=== PATIENT | female | born 1985 ===

== ENCOUNTER 2024-12-15 10:38 | Emergency (ER) | payer BC, SELFPAY ==
--- NOTE | ~2024-12-15 | XR_ITS ---
EXAMINATION: XR CHEST CLINICAL INFORMATION: cough, SOB COMPARISON: None available. TECHNIQUE: 2 views of the chest were obtained. FINDINGS: Numerous leads overlie the thorax. The cardiac, hilar, and mediastinal contours are normal. The lungs are clear bilaterally. There is no pneumothorax or pleural effusion. There is no focal osseous or soft tissue abnormality. XR/XR chest 2V IMPRESSION: No active disease. Normal chest. Electronically signed by: Wenceslao Braga MD 12/15/2024 12:23 PM [facility]
[2024-12-15 10:48] VITALS: BP 132/82; PULSE 101; RESP 26; TEMP 36.7; O2SAT 93; BMI 26.4
--- NOTE | 2024-12-15 11:01 | ED.SOB ---
HPI - SOB/Dyspnea General Chief Complaint: Dyspnea Stated Complaint: SOB - asthma Time Seen by Provider: 12/15/24 10:55 Source: patient Mode of arrival: ambulatory History of Present Illness ED Provider: Shanell MENDOZA Narrative: 39-year-old female with history of asthma, comes in with 3 days worsening shortness of breath that is been sick for a couple of weeks, she has been previously admitted for her asthma but has not been intubated. Related Data Previous Rx's ?Medication ?Instructions ?Recorded prednisone 50 mg tablet 50 mg PO DAILY 4 days #4 tabs 12/15/24 Allergies Allergy/AdvReac Type Severity Reaction Status Date / Time codeine Allergy Shortness Verified 12/15/24 10:51 of Breath Review of Systems Review of Systems: Pertinent positives and negatives as stated in [facility] Past Medical History Source: nursing notes reviewed Social History Social History Smoked in Last 30 Days: No Use of substances other than those prescribed or required for medical reasons: No Advance Directives: No Advance Directives Information Provided: No Do you have a plan to hurt others: No Plan Patient : No Physical Exam Vital Signs: Vital Signs: Last Vital Signs Temp 97.6 F 12/15/24 13:20 Pulse 108 H 12/15/24 13:20 Resp 22 H 12/15/24 13:20 BP 115/70 12/15/24 13:20 Pulse Ox 94 12/15/24 13:20 O2 Del Method Room Air 12/15/24 13:20 BMI result Body Mass Index 26.4 VITAL SIGNS: Reviewed. GENERAL: Well developed, well nourished, in no acute distress. HEAD: Normocephalic/atraumatic EYES: PERRLA, EOMI EARS: Ext canals without abnormality NOSE: Nares patent bilateral OROPHARYNX: no oral lesions noted, posterior pharynx clear and non-erythematous without noted tonsillar enlargement/erythema/exudates NECK: Supple, no adenopathy LUNGS: Increased work of breathing, audible wheezing, tachypnea, unable to speak in full sentences, retractions SpO2<93> CARDIOVASCULAR: Regular rate and rhythm without noted murmurs ABDOMEN: Soft, non-tender, non-distended with bowel sounds. MUSCULOSKELETAL: No tenderness, deformities, or effusions noted on gross inspection. EXTREMITIES: No cyanosis, clubbing or edema. SKIN: Inspection of the skin reveals no rashes NEUROLOGIC: Alert and oriented x 4. Strength and sensation to light touch were grossly intact x 4. Medications Administered Discontinued Medications Generic Name Dose Route Start Last Admin Trade Name Krystyna PRN Reason Stop Dose Admin Albuterol Sulfate 5 mg/ 7.5 mg 12/15/24 11:03 12/15/24 11:07 Albuterol Sulfate 2.5 mg INHALE 12/15/24 11:04 7.5 mg ONCE ONE Administration Albuterol Sulfate 2.5 mg/ 5 mg 12/15/24 12:20 12/15/24 12:24 Albuterol Sulfate 2.5 mg INHALE 12/15/24 12:21 5 mg ONCE ONE Administration Magnesium Sulfate 2 gm in 50 mls @ 150 mls/hr 12/15/24 10:58 12/15/24 12:47 Magnesium Sulfate/H2o IV 12/15/24 11:17 Infused ONCE ONE Infusion Methylprednisolone Sodium Succinate 125 mg 12/15/24 10:58 12/15/24 11:12 Methylprednisolone Sod Succ 125 Mg/2 Ml Vial IVPUSH 12/15/24 10:59 125 mg ONCE ONE Administration Medical Decision Making Medical Decision Making MDM Narrative: 1102: Magnesium sulfate, ED bronch protocol, [facility], 39-year-old female with history and clinical presentation, DD DX: Viral illness, acute asthma exacerbation, will rule out pneumonia. 1218: I reviewed and interpreted all investigations and there is no infectious leukocytosis/anemia/thrombocytopenia. Coagulation studies are within normal limits. There is no demonstrate LISA/electrolyte or liver enzyme derangements. Viral testing is negative for COVID-19/influenza/RSV. Rapid strep testing is negative for pharyngitis. Chest x-ray on my interpretation is negative for infiltrate or venous congestion otherwise my interpretation is in agreement with radiology's impression. Patient does appear more comfortable though there are still significant wheezing throughout and will ask RT to administer another treatment. 1337: Re-evaluation patient has had 2 nebulized treatments in total, she looks much more comfortable and states that she is feeling better, all results and findings discussed with her at bedside and she understands that she will discharged with an inhaler/spacer as well as a short course of steroids. Differential Diagnosis Differential Diagnoses: The differential diagnosis associated with the presentation includes See above Admission/Observation Consideration of admission/observation: Escalation of care including admission/observation considered Lab Data MDM Lab Attestation statement: I reviewed the patient's lab results. See above 12/15/24 11:06 12/15/24 11:39 Labs: Lab Results 12/15/24 12/15/24 12/15/24 Range/Units 11:06 11:17 11:39 WBC 8.9 (4.8-10.8) X10*3/uL RBC 4.71 (4.20-5.50) X10*6/uL Hgb 15.3 (12.0-16.0) g/dl Hct 43.2 (37.0-47.0) % MCV 91.7 (80.0-98.0) fL MCH 32.5 (27.0-33.0) pg MCHC 35.4 H (31.0-35.0) g/dl RDW 11.9 (11.0-16.0) % Plt Count 329 (160-400) X10*3/uL MPV 8.8 L (9.4-12.3) fL Immature Gran % (Auto) 0.2 (0.0-0.4) % Neut % (Auto) 70.1 (45-73) % Lymph % (Auto) 15.2 L (20-40) % [place] % (Auto) 8.2 (2-11) % Eos % (Auto) 5.3 H (0-4) % Baso % (Auto) 1.0 (0-2) % Lymph # (Auto) 1.4 (1.2-4.9) X10*3/uL [place] # (Auto) 0.7 (0.1-1.2) X10*3/uL Eos # (Auto) 0.5 H (0.0-0.4) X10*3/uL Baso # (Auto) 0.1 (0.0-0.2) X10*3/uL Abs Immat Gran (auto) 0.02 (0.00-0.03) X10*3/uL Absolute Neuts (auto) 6.2 (2.0-8.3) x10*3/uL Absolute Nucleated RBC 0.000 (0.0-0.012) X10*3/uL Nucleated RBC % (auto) 0.0 (0.0-0.2) /100WBC PT 12.4 (10.9-12.4) SEC INR 1.1 (0.9-1.1) Sodium 140 (135-145) mmol/L Potassium 3.5 (3.3-5.1) mmol/L Chloride 109 H (96-108) mmol/L Carbon Dioxide 26 (22-29) mmol/L Anion Gap 9 L (12-20) BUN 6 L (9-16) mg/dL Creatinine 0.60 (0.5-1.4) mg/dL Estim Creat Clear Calc 112.9 Estimated GFR > 60 Random Glucose 123 H (60-115) mg/dL Calcium 8.7 (8.4-10.2) mg/dL Magnesium 3.1 H (1.6-2.6) mg/dL Total Bilirubin 0.4 (0.0-1.0) mg/dL AST 22 (5-31) U/L ALT 16 (0-31) U/L Alkaline Phosphatase 71 (39-117) U/L Total Protein 8.0 (6.5-8.0) g/dL Albumin 4.1 (3.5-5.0) g/dL Beta HCG, Quant < 2 mIU/mL Influenza Type A (PCR) NEGATIVE (Negative) Influenza Type B (PCR) NEGATIVE (Negative) RSV RNA Qual (PCR) NEGATIVE (Negative) SARS-CoV-2 RNA (RT-PCR) NEGATIVE (Negative) S. pyogenes GrpA ELDON Negative (Negative) Independent Interpretation I performed an independent interpretation of an: Plain X-Ray Radiology Impression Discussion of test interpretation with radiology: I have reviewed the radiologist's reading. Radiologist Impression: See above External Record Review External record reviewed: Prior outpatient labs and Prior outpatient radiology Chronic Conditions Patient?s care impacted by: Other Asthma Critical Care Time Critical Care Time Critical Care Time: Yes Total Critical Care Time: 30 Attestation: I personally attest to this time spent taking care of the patient. Discharge Plan Discharge Clinical Impression: Asthma with exacerbation Patient Disposition: Home, Self-Care Instructions: Asthma (ED) Additional Instructions: Over the next 24-48 hours you will need to continue with every 4/6 hourly nebulized/inhaler treatments you have been discharged with a script for prednisone. Follow-up with your primary care doctor within the next 3-4 days and return to the emergency room immediately should you experience any acute worsening of your symptoms. Prescriptions: New prednisone 50 mg tablet 50 mg PO DAILY 4 Days Qty: 4 0RF Print Language: Spanish
[2024-12-15 11:04] VITALS: PULSE 85; RESP 24; O2SAT 96
[2024-12-15] MEDS: Albuterol Sulfate 5 MG, Albuterol Sulfate (0.083%) 2.5 MG 7.5 MG INHALE (11:07)
[2024-12-15 11:12] LABS: MANUAL DIFF FLAG NO
[2024-12-15] MEDS: methylPREDNISolone Sod Succ 125 MG/2 ML VIAL IVPUSH (11:12)
[2024-12-15] MEDS: Magnesium Sulfate/H2O 2 GM/50 ML PIGGYBACK IV (11:12)
[2024-12-15 11:14] LABS: Basophils Absolute Auto 0.1 X10*3/uL (0.0-0.2); Eosinophils Absolute Auto 0.5 X10*3/uL (0.0-0.4); Eosinophils Percent Auto 5.3 % (0-4); Hematocrit 43.2 % (37.0-47.0); Hemoglobin 15.3 g/dl (12.0-16.0); Imm Gran Abs Auto 0.02 X10*3/uL (0.00-0.03); Imm Gran Pct Auto 0.2 % (0.0-0.4); Lymphocytes Absolute Auto 1.4 X10*3/uL (1.2-4.9); Lymphocytes Percent Auto 15.2 % (20-40); Mean Corpuscular HGB Conc 35.4 g/dl (31.0-35.0); Mean Corpuscular Hemoglobin 32.5 pg (27.0-33.0); Mean Corpuscular Volume 91.7 fL (80.0-98.0); Mean Platelet Volume 8.8 fL (9.4-12.3); Monocytes Absolute Auto 0.7 X10*3/uL (0.1-1.2); Monocytes Percent Auto 8.2 % (2-11); Neutrophils Absolute Auto 6.2 x10*3/uL (2.0-8.3); Neutrophils Percent Auto 70.1 % (45-73); Platelet Count 329 X10*3/uL (160-400); Red Blood Count 4.71 X10*6/uL (4.20-5.50); Red Cell Distribution Width 11.9 % (11.0-16.0); White Blood Count 8.9 X10*3/uL (4.8-10.8)
[2024-12-15 11:19] LABS: INTERNATIONAL NORM RATIO 1.1 (0.9-1.1); Prothrombin Time 12.4 SEC (10.9-12.4)
[2024-12-15 12:00] LABS: Alanine Aminotransferase 16 U/L (0-31); Albumin Level 4.1 g/dL (3.5-5.0); Alkaline Phosphatase 71 U/L (39-117); Anion Gap 9 (12-20); Aspartate Amino Transferase 22 U/L (5-31); Bilirubin Total 0.4 mg/dL (0.0-1.0); Blood Urea Nitrogen 6 mg/dL (9-16); Calcium 8.7 mg/dL (8.4-10.2); Carbon Dioxide 26 mmol/L (22-29); Chloride 109 mmol/L (96-108); Creatinine Clr Calc Pharmacy 112.9; Estimated Glomerular Filt Rate > 60; Glucose Random 123 mg/dL (60-115); Magnesium 3.1 mg/dL (1.6-2.6); Potassium 3.5 mmol/L (3.3-5.1); Sodium 140 mmol/L (135-145)
[2024-12-15 12:01] LABS: IDNOW Serial# 58CA691E; Strep A Nucleic Acid Negative (Negative)
[2024-12-15 12:13] LABS: Influenza A PCR NEGATIVE (Negative); Influenza B PCR NEGATIVE (Negative); Resp Syncy Virus RNA Qual PCR NEGATIVE (Negative); SARS COV2 PCR INHOUSE NEGATIVE (Negative)
[2024-12-15] MEDS: Albuterol Sulfate 2.5 MG, Albuterol Sulfate (0.083%) 2.5 MG 5 MG INHALE (12:24)
[2024-12-15 12:25] VITALS: PULSE 99; RESP 24; O2SAT 94
[2024-12-15 12:31] LABS: HCG Quantitative < 2 mIU/mL
[2024-12-15 13:20] VITALS: BP 115/70; PULSE 108; RESP 22; TEMP 36.4; O2SAT 94
[2024-12-15 14:01] VITALS: BP 120/76; PULSE 108; RESP 18; TEMP 36.4; O2SAT 94
[2024-12-15] MEDS: Albuterol Sulfate 90 MCG 8 GM INHALER 2 PUFF INHALE (14:05)
== END 2024-12-15 14:12 | disposition home or self-care (01) ==
PROVIDERS: Emergency Provider Student in an Organized Health Care Education/Training Program
DX: J45.901 Unspecified asthma with (acute) exacerbation (principal); R06.02 Shortness of breath; R10.2 Pelvic and perineal pain; Z79.899 Other long term (current) drug therapy; Z51.81 Encounter for therapeutic drug level monitoring; Z03.818 Encounter for observation for suspected exposure to other biological agents ruled out
CPT/HCPCS: 0241U; 36415; 71046; 80053; 83735; 84702; 85025; 85610; 87651; 94640; 96365; 96366; 96375; 99285; J2919; J3475

== ENCOUNTER → 2024-12-15 12:03 | Outpatient (BNV) | payer BC, SELFPAY | PROVIDERS: Emergency Provider Student in an Organized Health Care Education/Training Program; Visit Provider Radiology Diagnostic Radiology | DX: R05.9 Cough, unspecified (principal); R06.02 Shortness of breath | CPT/HCPCS: 71046 ==